=== PATIENT | male | born 1985 | race Caucasian/White ===

== ENCOUNTER 2025-03-23 06:42 | Day surgery (SDC) | payer MEDICAID ==
[2025-03-23] MEDS ORDERED: Midazolam 1 MG/ML 2 ML SDV ONE (07:28)
[2025-03-23] MEDS ORDERED: Propofol 200 MG/20 ML SDV ONE ×3 (07:28→08:58)
[2025-03-23] MEDS ORDERED: fentaNYL 100 MCG/2 ML SDV ONE (07:28)
[2025-03-23] MEDS: Lactated Ringers 1,000 ML IV SCH (07:33)
[2025-03-23] MEDS: methylPREDNISolone Sodium Succinate 125 MG/2 ML SDV IVPUSH ONE (07:41)
[2025-03-23] MEDS: Ondansetron 4 MG/2 ML SDV IVPUSH ONE (07:52)
== END 2025-03-23 10:11 | disposition home or self-care (01) ==
LOC: JP.SDS 06:42
PROVIDERS: ATTEND Surgery
DX: K29.50 Unspecified chronic gastritis without bleeding (principal); K22.89 Other specified disease of esophagus; K63.5 Polyp of colon; K62.1 Rectal polyp; K44.9 Diaphragmatic hernia without obstruction or gangrene; K64.9 Unspecified hemorrhoids
CPT/HCPCS: 00813; 43239; 45380; 45385; 45398; 88305; J2250; J2405; J2704; J2919; J3010; J7120